=== PATIENT | male | born 1965 | race Caucasian/White ===

== ENCOUNTER 2021-07-25 19:08 | Emergency (ER) | payer OTHER ==
[~2021-07-25 19:08] MED LIST: ASPIRIN CHEWABL81 MG PO; ASPIRIN325 MG PO; BENADRYL25 MG PO; CLARITIN10 MG PO; PERCOCET 5-3251 EACH PO; PROTONIX 40MG T40 MG PO; ZOCOR40 MG PO
[2021-07-25 20:04] LABS: BASOPHIL 0.4 % (0-2); EOSINOPHIL 0 % (0-5); HCT 43.9 % (42.0-52.0); HGB 15.7 g/dl (13.2-18.0); LYMPHOCYTE 15.1 % (15-48); MCH 31.7 pg (25.0-31.0); MCHC 35.8 g/dL (32.0-36.0); MCV 88.5 fL (78.0-100.0); MONOCYTE 12.9 % (0-12); MPV 9.8 fL (6.0-9.5); NEUTROPHIL 71.2 % (41-80); NRBC 0; PLT 227 K/uL (150-400); RBC 4.96 M/uL (4.70-6.00); RDW 12.6 % (11.5-14.0); WBC 4.6 K/uL (4.0-10.5)
[2021-07-25 20:15] LABS: ALBUMIN 4.4 g/dL (3.4-5.0); BILIRUBIN - TOTAL 0.6 mg/dL (0.2-1.0); BUN/CREAT RATIO (CALC) 14.1 RATIO; CREATININE 0.99 mg/dL (0.67-1.17); GLOBULIN (CALCULATION) 4.1 g/dL; POTASSIUM 5.1 mmol/L (3.5-5.1); TOTAL PROTEIN 8.5 g/dL (6.4-8.2)
[2021-07-25 20:35] LABS: LACTIC ACID 1.7 mmol/L (0.4-1.9)
[2021-07-25 20:48] LABS: INFLUENZA A NAA NEGATIVE (NEGATIVE)
[2021-07-25 21:13] LABS: CORONAVIRUS 2019 SARS-COV-2 POSITIVE (NEGATIVE)
[2021-07-25] MEDS ORDERED: PHENERGAN25 M1 PO (22:16)
[2021-07-25] MEDS ORDERED: VIBRAMYCIN100 MG PO (22:16)
[2021-07-25] MEDS ORDERED: IBUPROFEN800 MG PO (22:16)
[2021-07-25 22:19] LABS: BILIRUBIN 1+ mg/dL (NEGATIVE); BLOOD NEGATIVE Ery/uL (NEGATIVE); CLARITY CLEAR (CLEAR); COLOR YELLOW (YELLOW); GLUCOSE (U) NORMAL (NORMAL); LEUKOCYTES NEGATIVE Leu/uL (NEGATIVE); NITRITE NEGATIVE (NEGATIVE); PROTEIN TRACE (LOW) mg/dL (NEGATIVE)
[2021-07-27 21:10] LABS: CHLAMYDIA TRACHOMATIS, NAA Negative (Negative); NEISSERIA GONORRHOEAE, NAA Negative (Negative)
== END 2021-07-25 22:45 | disposition home or self-care (01) ==
LOC: FER 19:08
PROVIDERS: Emergency Medicine Emergency Medical Services
DX: N50.811 Right testicular pain (principal); U07.1 COVID-19; I10 Essential (primary) hypertension
CPT/HCPCS: 36415; 80053; 81003; 83605; 83690; 84145; 85025; 87491; 87591; 96372; J0696; J1170; J1885; J2270; J2405; J7120; U0002

== ENCOUNTER 2021-07-30 16:32 | Inpatient (IN) | payer OTHER ==
[~2021-07-30] VITALS: Ht 182.9 cm; Wt 96.2 kg
[~2021-07-30 16:32] MED LIST changes: +IBUPROFEN800 MG PO; +PHENERGAN25 M1 PO; +VIBRAMYCIN100 MG PO
[2021-07-30 18:23] LABS: BASOPHIL 0.3 % (0-2); EOSINOPHIL 0 % (0-5); HCT 48.1 % (42.0-52.0); HGB 17.1 g/dl (13.2-18.0); LYMPHOCYTE 25.1 % (15-48); MCH 31.6 pg (25.0-31.0); MCHC 35.6 g/dL (32.0-36.0); MCV 88.9 fL (78.0-100.0); MONOCYTE 10.6 % (0-12); MPV 9.4 fL (6.0-9.5); NEUTROPHIL 63.7 % (41-80); NRBC 0; PLT 189 K/uL (150-400); RBC 5.41 M/uL (4.70-6.00); RDW 13.1 % (11.5-14.0); WBC 6.3 K/uL (4.0-10.5)
[2021-07-30 18:33] LABS: BUN/CREAT RATIO (CALC) 17.6 RATIO; CREATININE 1.31 mg/dL (0.67-1.17); POTASSIUM 4.1 mmol/L (3.5-5.1)
[2021-07-30 20:44] LABS: LACTIC ACID 3.1 mmol/L (0.4-1.9)
[2021-07-30 20:48] LABS: ALBUMIN 4.5 g/dL (3.4-5.0); BILIRUBIN - DIRECT 0.2 mg/dL (0.00-0.20); BILIRUBIN - TOTAL 0.7 mg/dL (0.2-1.0); C-REACTIVE PROTEIN 0.9 mg/dL (<=0.90); GLOBULIN (CALCULATION) 3.8 g/dL; TOTAL PROTEIN 8.3 g/dL (6.4-8.2)
[2021-07-30 22:20] LABS: BILIRUBIN NEGATIVE (NEGATIVE); BLOOD NEGATIVE Ery/uL (NEGATIVE); CLARITY CLEAR (CLEAR); COLOR YELLOW (YELLOW); GLUCOSE (U) NORMAL (NORMAL); LEUKOCYTES NEGATIVE Leu/uL (NEGATIVE); NITRITE NEGATIVE (NEGATIVE); PROTEIN 1+ mg/dL (NEGATIVE); SPECIFIC GRAVITY 1.015 (1.001-1.030); UROBILINOGEN 0.2 mg/dL (0.2-1.0); pH 6.5 (5.0-9.0)
[2021-07-30 22:26] LABS: BACTERIA 1+; MUCOUS MODERATE
[2021-07-31 07:32] LABS: BASOPHIL 0.6 % (0-2); EOSINOPHIL 0 % (0-5); HCT 37.2 % (42.0-52.0); HGB 12.9 g/dl (13.2-18.0); LYMPHOCYTE 48.3 % (15-48); MCH 31.3 pg (25.0-31.0); MCHC 34.7 g/dL (32.0-36.0); MCV 90.3 fL (78.0-100.0); MONOCYTE 12.4 % (0-12); NEUTROPHIL 38.4 % (41-80); NRBC 0; PLT 139 K/uL (150-400); RBC 4.12 M/uL (4.70-6.00); RDW 13.4 % (11.5-14.0); WBC 3.5 K/uL (4.0-10.5)
[2021-07-31 08:01] LABS: ALBUMIN 3.4 g/dL (3.4-5.0); BILIRUBIN - TOTAL 0.4 mg/dL (0.2-1.0); BUN/CREAT RATIO (CALC) 21.8 RATIO; CREATININE 1.24 mg/dL (0.67-1.17); GLOBULIN (CALCULATION) 3.1 g/dL; POTASSIUM 3.7 mmol/L (3.5-5.1); TOTAL PROTEIN 6.5 g/dL (6.4-8.2)
[2021-07-31] MEDS ORDERED: LISINOPRIL-HCT1 EACH PO (09:22)
[2021-07-31] MEDS ORDERED: PERCOCET 5-3251 EACH PO (09:23)
--- NOTE | 2021-07-31 13:40 | NUR ---
Mr. Miranda has a dx of COVID. He does not require 02 per walk test.
[2021-08-01 06:39] LABS: BASOPHIL 0.2 % (0-2); EOSINOPHIL 0 % (0-5); HCT 36.8 % (42.0-52.0); HGB 12.8 g/dl (13.2-18.0); LYMPHOCYTE 35.4 % (15-48); MCH 31.4 pg (25.0-31.0); MCHC 34.8 g/dL (32.0-36.0); MCV 90.4 fL (78.0-100.0); MONOCYTE 8.2 % (0-12); NRBC 0; PLT 147 K/uL (150-400); RBC 4.07 M/uL (4.70-6.00); RDW 13.4 % (11.5-14.0); WBC 4.3 K/uL (4.0-10.5)
[2021-08-01 06:58] LABS: CREATININE 1.07 mg/dL (0.67-1.17); MAGNESIUM 1.8 mg/dL (1.8-2.4); POTASSIUM 3.8 mmol/L (3.5-5.1)
[2021-08-01 08:11] LABS: HBSAG SCREEN Negative (Negative); HEP A AB, IGM Indeterminate (Negative); HEP B CORE AB, IGM Negative (Negative); HEP C VIRUS AB 0.1 (0.0-0.9)
[2021-08-02 08:28] LABS: BASOPHIL 0.3 % (0-2); EOSINOPHIL 0 % (0-5); HCT 37.1 % (42.0-52.0); LYMPHOCYTE 30.3 % (15-48); MCH 31.3 pg (25.0-31.0); MCV 89.4 fL (78.0-100.0); MONOCYTE 8.8 % (0-12); MPV 9.1 fL (6.0-9.5); NEUTROPHIL 60.1 % (41-80); NRBC 0; PLT 158 K/uL (150-400); RBC 4.15 M/uL (4.70-6.00); RDW 13.4 % (11.5-14.0); WBC 3.8 K/uL (4.0-10.5)
[2021-08-02 08:56] LABS: ALBUMIN 3.2 g/dL (3.4-5.0); BILIRUBIN - TOTAL 0.4 mg/dL (0.2-1.0); BUN/CREAT RATIO (CALC) 12.6 RATIO; CREATININE 0.95 mg/dL (0.67-1.17); GLOBULIN (CALCULATION) 3.5 g/dL; MAGNESIUM 1.8 mg/dL (1.8-2.4); POTASSIUM 3.3 mmol/L (3.5-5.1); TOTAL PROTEIN 6.7 g/dL (6.4-8.2)
[2021-08-03 07:16] LABS: BASOPHIL 0 % (0-2); EOSINOPHIL 0 % (0-5); HCT 39.9 % (42.0-52.0); HGB 13.7 g/dl (13.2-18.0); LYMPHOCYTE 28.2 % (15-48); MCH 30.8 pg (25.0-31.0); MCHC 34.3 g/dL (32.0-36.0); MCV 89.7 fL (78.0-100.0); MONOCYTE 7.7 % (0-12); MPV 9.6 fL (6.0-9.5); NEUTROPHIL 63.5 % (41-80); NRBC 0; PLT 209 K/uL (150-400); RBC 4.45 M/uL (4.70-6.00); WBC 4.8 K/uL (4.0-10.5)
[2021-08-03 07:19] LABS: ALBUMIN 3.3 g/dL (3.4-5.0); BILIRUBIN - TOTAL 0.4 mg/dL (0.2-1.0); CREATININE 0.86 mg/dL (0.67-1.17); GLOBULIN (CALCULATION) 3.5 g/dL; POTASSIUM 4.4 mmol/L (3.5-5.1); TOTAL PROTEIN 6.8 g/dL (6.4-8.2)
[2021-08-03] MEDS ORDERED: MEDROL 4MG DOSEP4 MG PO (13:18)
[2021-08-04 07:11] LABS: BASOPHIL 0.2 % (0-2); EOSINOPHIL 0 % (0-5); HCT 39.2 % (42.0-52.0); HGB 13.7 g/dl (13.2-18.0); LYMPHOCYTE 25.8 % (15-48); MCH 30.7 pg (25.0-31.0); MCHC 34.9 g/dL (32.0-36.0); MCV 87.9 fL (78.0-100.0); MONOCYTE 8.5 % (0-12); MPV 9.4 fL (6.0-9.5); NEUTROPHIL 65.1 % (41-80); NRBC 0; PLT 274 K/uL (150-400); RBC 4.46 M/uL (4.70-6.00); RDW 12.9 % (11.5-14.0); WBC 4.9 K/uL (4.0-10.5)
[2021-08-04 07:27] LABS: BUN/CREAT RATIO (CALC) 22.7 RATIO; CREATININE 0.75 mg/dL (0.67-1.17); MAGNESIUM 2.1 mg/dL (1.8-2.4); POTASSIUM 4.4 mmol/L (3.5-5.1)
[2021-08-05] MEDS ORDERED: DEXAMETHASONE 2M2 MG PO (14:19)
== END 2021-08-05 14:30 | disposition home or self-care (01) | DRG 871 ==
LOC: FER 16:32 → FMS 22:55
PROVIDERS: Emergency Medicine; Emergency Medicine Emergency Medical Services; Internal Medicine; Nurse Practitioner; ADMIT Family Medicine
PROC: 8E0ZXY6 Isolation (ICD-10-PCS; principal; 2021-07-30)
PROC: XW033E5 Introduction of Remdesivir Anti-infective into Peripheral Vein, Percutaneous Approach, New Technology Group 5 (ICD-10-PCS; 2021-08-03)
PROC: XW0DXM6 Introduction of Baricitinib into Mouth and Pharynx, External Approach, New Technology Group 6 (ICD-10-PCS; 2021-08-03)
DX: A41.89 Other specified sepsis (principal); U07.1 COVID-19; J12.82 Pneumonia due to coronavirus disease 2019; J96.01 Acute respiratory failure with hypoxia; N17.9 Acute kidney failure, unspecified; A08.39 Other viral enteritis; E87.2 Acidosis; E86.9 Volume depletion, unspecified; R65.20 Severe sepsis without septic shock; G40.909 Epilepsy, unspecified, not intractable, without status epilepticus; E78.5 Hyperlipidemia, unspecified; I10 Essential (primary) hypertension; K21.9 Gastro-esophageal reflux disease without esophagitis; N20.0 Calculus of kidney; E86.0 Dehydration; M19.90 Unspecified osteoarthritis, unspecified site; Z90.89 Acquired absence of other organs; Z98.890 Other specified postprocedural states; Z83.3 Family history of diabetes mellitus; Z82.49 Family history of ischemic heart disease and other diseases of the circulatory system; Z88.5 Allergy status to narcotic agent; Z79.899 Other long term (current) drug therapy
CPT/HCPCS: 36415; 36600; 71045; 71275; 80048; 80053; 80074; 80076; 81001; 82728; 82803; 83605; 83615; 83690; 83735; 83880; 84145; 84484; 85025; 85379; 86140; 93005; 94010; 94667; C9399; J0780; J1100; J1170; J1650; J1885; J2405; J2550; J7030; J7050; J7120; J8540; Q9967; U0002

== ENCOUNTER 2022-02-18 11:49 | Emergency (ER) | payer OTHER ==
[~2022-02-18 11:49] MED LIST changes: +DEXAMETHASONE 2M2 MG PO; +LISINOPRIL-HCT1 EACH PO; +MEDROL 4MG DOSEP4 MG PO
[2022-02-18 12:20] LABS: BASOPHIL 0.4 % (0-2); EOSINOPHIL 0 % (0-5); HCT 40.9 % (42.0-52.0); HGB 14.8 g/dl (13.2-18.0); LYMPHOCYTE 18.6 % (15-48); MCHC 36.2 g/dL (32.0-36.0); MCV 88.3 fL (78.0-100.0); MONOCYTE 8.8 % (0-12); MPV 8.4 fL (6.0-9.5); NEUTROPHIL 71.7 % (41-80); NRBC 0; PLT 325 K/uL (150-400); RBC 4.63 M/uL (4.70-6.00); RDW 12.5 % (11.5-14.0); WBC 12.7 K/uL (4.0-10.5)
[2022-02-18 12:30] LABS: INR 1.12 (0.9-1.2); PROTHROMBIN TIME 13.8 SECONDS (11.8-13.4); PTT 31.8 SECONDS (24.4-34.7)
[2022-02-18 12:52] LABS: BUN/CREAT RATIO (CALC) 15.1 RATIO; CREATININE 1.19 mg/dL (0.67-1.17); GLOBULIN (CALCULATION) 4.6 g/dL; POTASSIUM 3.8 mmol/L (3.5-5.1); TOTAL PROTEIN 8.6 g/dL (6.4-8.2)
[2022-02-18] MEDS ORDERED: PHENERGAN25 M1 PO (15:29)
[2022-02-18] MEDS ORDERED: ZPAK PO (15:29)
== END 2022-02-18 15:47 | disposition home or self-care (01) ==
LOC: FER 11:49
PROVIDERS: Emergency Medicine
DX: J18.9 Pneumonia, unspecified organism (principal); R07.89 Other chest pain; I10 Essential (primary) hypertension; Z20.822 Contact with and (suspected) exposure to COVID-19; Z28.310 Unvaccinated for COVID-19
CPT/HCPCS: 36415; 71045; 71275; 80053; 84484; 85025; 85610; 85730; 93005; J2405; J7030; Q9967; U0002